=== PATIENT | female | born 1990 | race Two or more races ===

== ENCOUNTER 2016-10-07 13:55 | Emergency (ER) | payer BC ==
[~2016-10-07] VITALS: Ht 160 cm; Wt 72.6 kg
[~2016-10-07 13:55] MED LIST: BIRTH CONTROLL
--- NOTE | 2016-10-07 14:07 | NUR ---
PT C/O EPIGASTRIC PAIN SINCE YESTERDAY, RADIATING TO THE BACK WORSENING WHILE LYING DOWN. PT PLACED IN SAFETY MEASURES AND COMFORTABLE POSITION. PLACED IN MONITOR. VSS. AWAITING MD ORDER
[2016-10-07] MEDS ORDERED: BELLADONNA /PHENOBARB 5 ML UDC 5 ML UDC PO ONE (14:30)
[2016-10-07] MEDS ORDERED: FAMOTIDINE (20 MG) 20 MG TABLET PO ONE (14:30)
[2016-10-07] MEDS ORDERED: MAG HYDROX/AL HYDROX/SIMETH 30 ML UDC PO ONE (14:30)
[2016-10-07] MEDS ORDERED: MAG HYDROX/AL HYDROX/SIMETH 30 ML UDC ONE (14:42)
[2016-10-07] MEDS ORDERED: FAMOTIDINE (20 MG) 20 MG TABLET ONE (14:42)
[2016-10-07 14:45] LABS: BASOPHILS % (AUTO) 0.5 % (0.0-2.0); EOSINOPHILS # (AUTO) 0.1 /CMM (0.0-0.7); EOSINOPHILS % (AUTO) 1.3 % (0.0-6.0); HEMATOCRIT 43 % (33-45); HEMOGLOBIN 14.2 g/dL (11.5-14.8); LYMPHOCYTES # (AUTO) 1.5 /CMM (0.8-4.8); LYMPHOCYTES % (AUTO) 25.5 % (20.0-44.0); MEAN CORPUSCULAR HEMOGLOBIN 29 PG (26.0-33.0); MEAN CORPUSCULAR HGB CONC 33 g/dl (31.0-36.0); MEAN CORPUSCULAR VOLUME 87 fL (82-100); MONOCYTES # (AUTO) 0.4 /CMM (0.1-1.30); MONOCYTES % (AUTO) 6.9 % (2.0-12.0); NEUTROPHILS % (AUTO) 65.8 % (43.0-81.0); PLATELET COUNT (AUTO) 176 /CMM (150-450); RDW COEFFICIENT OF VARIATION 12.8 (11.5-15.0); RED BLOOD CELL COUNT(AUTO) 4.91 MIL/uL (4.0-5.2)
[2016-10-07 14:55] LABS: CALCIUM, SERUM 8.3 mg/dL (8.5-10.1); CREATININE 0.6 mg/dL (0.6-1.3); POTASSIUM 3.7 mmol/L (3.5-5.1)
[2016-10-07 15:00] LABS: APPEARANCE,URINE Slightly Cloudy (CLEAR); BLOOD, URINE Large Ery/uL (NEGATIVE); COLOR,URINE Dark (YELLOW); KETONES,URINE Trace (NEGATIVE); LEUKOCYTE ESTERASE ,URINE Trace (NEGATIVE); NITRITE, URINE Negative (NEGATIVE); PROTEIN,URINE 100 mg/dl (NEGATIVE); UGLUCOSE Negative (NEGATIVE)
[2016-10-07] MEDS ORDERED: DICYCLOMINE HCL 10 MG CAPSULE PO ONE ×2 (15:00→15:03)
[2016-10-07 15:04] LABS: ALBUMIN 3.4 g/dL (3.4-5.0); BILIRUBIN,DIRECT 0.1 mg/dL (0.0-0.2); BILIRUBIN,TOTAL 0.5 mg/dL (0.2-1.0); TOTAL PROTEIN, SERUM 7.1 g/dL (6.4-8.2)
[2016-10-07 15:04] LABS: BILIRUBIN,URINE SMALL (NEGATIVE)
[2016-10-07 15:05] LABS: PREGNANCY TEST URINE QUAL NEGATIVE (NEGATIVE)
[2016-10-07 15:08] LABS: ADD URINE CULTURE YES; BACTERIA,URINE Moderate /HPF (None Seen); SQUAMOUS EPITHELIAL CELL,UR Many /HPF (None Seen)
[2016-10-07] MEDS ORDERED: LIDOCAINE /MPF 1% VIAL 5 ML VIAL ONE (15:24)
[2016-10-07] MEDS ORDERED: CEFTRIAXONE 1 G VIAL ONE (15:24)
[2016-10-07] MEDS ORDERED: CEFTRIAXONE 1 G VIAL IM ONE (15:30)
--- NOTE | 2016-10-07 16:14 | NUR ---
PT STATES THAT SHE IS NOW FEELING BETTER, PT. VERBALIZED UNDERSTANDING OF AFTERCARE INSTRUCTIONS.Patient discharged to home in stable condition. Written and verbal after care instructions given. Patient verbalizes understanding of instruction.
[2016-10-07 16:16] VITALS: BP 124/74
== END 2016-10-07 16:17 | disposition home or self-care (01) ==
LOC: ER 13:56
DX: N12 Tubulo-interstitial nephritis, not specified as acute or chronic (principal)
CPT/HCPCS: 36415; 76705; 80048; 80076; 81001; 83690; 84703; 85025; 87086; 96372; 99285; A4606; J0696; J3490; Z7610; 81000-TC

== ENCOUNTER 2017-01-26 19:22 | Emergency (ER) | payer BC ==
[~2017-01-26] VITALS: Ht 160 cm; Wt 72.6 kg
--- NOTE | 2017-01-26 20:00 | NUR ---
PT BIB FAMILY C/O R SIDED HEADACHE WITH INTERMITTENT R SIDED BLURRED VISION. NO NEURO DEFICITS CURRENTLY. NO BLURRED VISION CURRENTLY. RESP EVEN UNLABORED. AMBULATORY WITH STEADY GAIT. DENIES N/V/D. IN ER BED 10.
--- NOTE | 2017-01-26 20:10 | NUR ---
VISUAL ACUITY L: 20/20 R: 20/20 BOTH: 20/20
--- NOTE | 2017-01-26 20:25 | NUR ---
US TECH AT BEDSIDE
[2017-01-26] MEDS ORDERED: HYDROCODONE/APAP 10/325MG 1 EA TABLET ONE (21:09)
[2017-01-26] MEDS ORDERED: ONDANSETRON 4 MG TAB.RAPDIS ONE (21:09)
[2017-01-26] MEDS ORDERED: HYDROCODONE/APAP 10/325MG 1 EA TABLET PO ONE (21:30)
[2017-01-26] MEDS ORDERED: ONDANSETRON 4 MG TAB.RAPDIS SL ONE (21:30)
--- NOTE | 2017-01-26 22:14 | NUR ---
Patient discharged to home in stable condition. Written and verbal after care instructions given. Patient verbalizes understanding of instruction.
[2017-01-26 22:31] VITALS: BP 111/69
== END 2017-01-26 22:32 | disposition home or self-care (01) ==
LOC: ER 19:26
DX: H57.11 Ocular pain, right eye (principal); R51 Headache
CPT/HCPCS: 99284; A4606; Q0162; Z7610

== ENCOUNTER 2017-06-13 09:46 | Emergency (ER) | payer BC ==
[~2017-06-13] VITALS: Ht 160 cm; Wt 74.8 kg
[2017-06-13 09:50] VITALS: BP 118/62
== END 2017-06-13 10:11 | disposition home or self-care (01) ==
LOC: ER 09:47
DX: H53.8 Other visual disturbances (principal)
CPT/HCPCS: 99283; A4606; Z7610

== ENCOUNTER 2017-09-03 10:54 | Emergency (ER) | payer BC ==
[~2017-09-03] VITALS: Ht 160 cm; Wt 72.6 kg
[2017-09-03 10:58] VITALS: BP 129/74
[2017-09-03] MEDS ORDERED: TDAP [DIPH/PERTUSSIS/TET] 0.5 ML VIAL IM ONE ×2 (11:58→12:00)
--- NOTE | 2017-09-03 12:05 | NUR ---
LAC REPAIR DONE. WOUND CARE PROVIDED. PT D/C HOME ION STABLE CONDITION.
== END 2017-09-03 12:09 | disposition home or self-care (01) ==
LOC: ER 10:55
DX: S61.215A Laceration without foreign body of left ring finger without damage to nail, initial encounter (principal); W26.0XXA Contact with knife, initial encounter; Y93.89 Activity, other specified; Y92.89 Other specified places as the place of occurrence of the external cause; Y99.8 Other external cause status
CPT/HCPCS: 12002; 90471; 90715; 99283; A4606; A6402; Z7610

== ENCOUNTER 2017-09-11 11:54 | Emergency (ER) | payer BC ==
[~2017-09-11] VITALS: Ht 160 cm; Wt 74.8 kg
[2017-09-11 12:04] VITALS: BP 118/68
== END 2017-09-11 12:42 | disposition home or self-care (01) ==
LOC: ER 12:01
DX: S61.215D Laceration without foreign body of left ring finger without damage to nail, subsequent encounter (principal)
CPT/HCPCS: 99281; A4606; Z7610; Z7502

== ENCOUNTER 2017-12-23 16:54 | Emergency (ER) | payer BC ==
[~2017-12-23] VITALS: Ht 160 cm; Wt 72.6 kg
[2017-12-23 18:08] LABS: BASOPHILS # (AUTO) 0.2 /CMM (0.0-0.2); BASOPHILS % (AUTO) 1.6 % (0.0-2.0); EOSINOPHILS % (AUTO) 0.1 % (0.0-6.0); HEMATOCRIT 37 % (33-45); HEMOGLOBIN 12.7 g/dL (11.5-14.8); LYMPHOCYTES # (AUTO) 0.4 /CMM (0.8-4.8); LYMPHOCYTES % (AUTO) 2.5 % (20.0-44.0); MEAN CORPUSCULAR HGB CONC 34 g/dl (31.0-36.0); MEAN CORPUSCULAR VOLUME 84 fL (82-100); MONOCYTES # (AUTO) 0.4 /CMM (0.1-1.30); MONOCYTES % (AUTO) 2.6 % (2.0-12.0); NEUTROPHILS # (AUTO) 13.6 /CMM (1.8-8.9); NEUTROPHILS % (AUTO) 93.2 % (43.0-81.0); PLATELET COUNT (AUTO) 169 /CMM (150-450); RDW COEFFICIENT OF VARIATION 13.6 (11.5-15.0); RED BLOOD CELL COUNT(AUTO) 4.42 MIL/uL (4.0-5.2); WHITE BLOOD COUNT (AUTO) 14.6 K/uL (4.3-11.0)
[2017-12-23 18:24] LABS: ALBUMIN 3.4 g/dL (3.4-5.0); BILIRUBIN,DIRECT 0.2 mg/dL (0.0-0.2); BILIRUBIN,TOTAL 0.9 mg/dL (0.2-1.0); CALCIUM, SERUM 8.4 mg/dL (8.5-10.1); CREATININE 0.8 mg/dL (0.6-1.3); POTASSIUM 3.5 mmol/L (3.5-5.1)
[2017-12-23] MEDS ORDERED: MAG HYDROX/AL HYDROX/SIMETH 30 ML UDC ONE (18:45)
[2017-12-23] MEDS ORDERED: MORPHINE SULFATE INJ 2 MG/ML DISP.SYRIN IV ONE (19:00)
[2017-12-23] MEDS ORDERED: ONDANSETRON HCL/PF 4 MG/2 ML VIAL IV ONE (19:00)
[2017-12-23] MEDS ORDERED: MAG HYDROX/AL HYDROX/SIMETH 30 ML UDC PO ONE (19:00)
[2017-12-23] MEDS ORDERED: IOHEXOL-300 100 ML VIAL IV ONE (19:09)
--- NOTE | 2017-12-23 19:25 | NUR ---
RECEIVED REPORT FROM MAGGIE GÓMEZ FOR ONI. PT RESTING COMFORTABLY IN BED. VSS WILL CONTINUE TO MONITOR PT
[2017-12-23] MEDS ORDERED: ONDANSETRON HCL/PF 4 MG/2 ML VIAL ONE (19:28)
[2017-12-23] MEDS ORDERED: MORPHINE SULFATE INJ 4 MG/ML DISP.SYRIN ONE (19:29)
[2017-12-23] MEDS ORDERED: IV NS 0.9% 1,000 ML BAG IV ONE (19:30)
[2017-12-23 20:38] LABS: APPEARANCE,URINE CLEAR (CLEAR); BILIRUBIN,URINE NEGATIVE (NEGATIVE); BLOOD, URINE NEGATIVE Ery/uL (NEGATIVE); COLOR,URINE YELLOW (YELLOW); KETONES,URINE NEGATIVE (NEGATIVE); LEUKOCYTE ESTERASE ,URINE TRACE (NEGATIVE); NITRITE, URINE NEGATIVE (NEGATIVE); PH,URINE 8.5 (5.0-8.0); PROTEIN,URINE NEGATIVE (NEGATIVE); UGLUCOSE NEGATIVE (NEGATIVE)
[2017-12-23 20:49] LABS: BACTERIA,URINE Many /HPF (None Seen); SQUAMOUS EPITHELIAL CELL,UR Few /HPF (None Seen)
[2017-12-23 20:50] LABS: RBC,URINE 0-2 /HPF (0-2)
--- NOTE | 2017-12-23 21:48 | NUR ---
Patient discharged to home in stable condition. Written and verbal after care instructions given. Patient verbalizes understanding of instruction.IV removed. Catheter intact and site benign. Pressure and 4x4 applied to site. No bleeding noted. VSS UPON DISCHARGE
[2017-12-23 21:50] VITALS: BP 112/71
== END 2017-12-23 21:54 | disposition home or self-care (01) ==
LOC: ER 16:57
DX: R10.13 Epigastric pain (principal); N83.201 Unspecified ovarian cyst, right side; D72.829 Elevated white blood cell count, unspecified; R10.11 Right upper quadrant pain; R10.31 Right lower quadrant pain; R10.84 Generalized abdominal pain
CPT/HCPCS: 36415; 71045-TC; 80048-TC; 80076-TC; 81000-TC; 83690-TC; 84703-TC; 85025-TC; 87086-TC; A4606; J2270; J2405; J7030; Q9967; Z7610